=== PATIENT | male | born 1945 | race African-American/Black ===

== ENCOUNTER 2021-09-20 23:57 | Emergency (ER) | payer BC, MEDICARE ==
--- NOTE | 2021-09-21 00:25 | NUR ---
>Spoke with daughter Rosario Hinds . She says that her father has a medical history of stroke (not massive), dementia, alzheimers, bladder surgery last year for bladder not emptying. She said that when her father had twitching in the past, he had bladder infection. >Per EMT, PMD Dr. Franks wanted the patient to be evaluated here in [facility].
--- NOTE | 2021-09-21 00:30 | NUR ---
report given to ASHLEY Oropeza.
--- NOTE | 2021-09-21 00:35 | NUR ---
ASSUME CARE, PT ON MONITOR, SB PER CM. OBTAIN 12 LEAD EKG AND 18 MAP INSERTED INTO RIGHT POSTERIOR ARM,MCNAIR CATH VERIFIED BY DAUGHTER THAT IT WAS INSERTED ON 09/20/21 AT [facility]OUS [facility] IN THE AFTERNOON.MCNAIR CATH PATIENT AND INTACT DRAINING CLEAR YELLOW URINE, KEPT BELOW BLADDER.PATIENT NOT IS CONFUSED TO TIME AND PLACE BUT REMAIN COOPERATIVE AND PLEASANT.
--- NOTE | 2021-09-21 00:40 | NUR ---
Condom cath noted on patient and not indewling andrew cath, patient incont of B/B, jerking movement persist. Maintain safe environment.
[2021-09-21 01:24] LABS: *BILIRUBIN,URIN NEGATIVE (NEGATIVE); *CLARITY,URINE CLEAR (CLEAR); *COLOR,URINE YELLOW (YELLOW); *KETONES,URINE NEGATIVE (NEGATIVE); *UROBILINOGEN,URINE 0.2 E.U./dl (NORMAL); LEUKOCYTE ESTERASE ,URINE TRACE (NEGATIVE); NITRITE, URINE NEGATIVE (NEGATIVE); PH,URINE 8.5 (5.0-8.0); UGLUCOSE NEGATIVE (NEGATIVE)
[2021-09-21 01:37] LABS: *BLOOD, URINE TRACE (NEGATIVE)
[2021-09-21 01:38] LABS: HEMATOCRIT 45.9 % (36.7-47.1); MEAN CORPUSCULAR HEMOGLOBIN 28.4 uug (23.8-33.4); MEAN CORPUSCULAR VOLUME 86.1 fL (73.0-96.2); PLATELET COUNT (AUTO) 316 K/uL (152-348)
[2021-09-21 01:49] LABS: BACTERIA,URINE NONE SEEN /HPF (NONE SEEN); SQUAMOUS EPITHELIAL CELL,UR NONE SEEN /HPF (NONE SEEN); WBC,URINE 0-3 /HPF (0-3)
--- NOTE | 2021-09-21 02:00 | NUR ---
NO DISTRESS NOTED MONITORING CONTS.
[2021-09-21 02:08] LABS: ALANINE AMINOTRANSFERASE 22 U/L (16-63); ALKALINE PHOSPHATASE 41 U/L (50-136); ASPARTATE AMINOTRANSFERASE 21 U/L (15-37); BILIRUBIN,DIRECT 0.2 mg/dL (0.0-0.2); BILIRUBIN,TOTAL 0.7 mg/dL (0.2-1.0); CARBON DIOXIDE 32 mmol/L (21-32); CHLORIDE 105 mmol/L (98-107); CREATININE 1.3 mg/dL (0.6-1.3); GLUCOSE 105 mg/dL (74-106); POTASSIUM 3.9 mmol/L (3.5-5.1); TOTAL PROTEIN, SERUM 7.4 g/dL (6.4-8.2); UREA NITROGEN, BLOOD 12 mg/dL (7-18)
[2021-09-21] MEDS ORDERED: IV NORMAL SALINE 500 ML IV ONE (03:30)
--- NOTE | 2021-09-21 04:00 | NUR ---
NS 500 ml bolus infusing wide open right fa map via pump.
--- NOTE | 2021-09-21 06:37 | NUR ---
PATIENT BEING DISCHARGE TO [facility].DAUGHTER CALLED AND NOTIFIED.
--- NOTE | 2021-09-21 06:57 | NUR ---
CHARGE NURSE CALLED AMBULANCE BLS TO TRANSPORT PATIENT BACK TO GROUP HOME: [facility] 0930 AM, QUINN CALLED AND MESSAGE LEFT ON ANSWERING MACHINE.
--- NOTE | 2021-09-21 07:19 | NUR ---
REPORT GIVEN TO INCOMING RN ASSUMING CARE
--- NOTE | 2021-09-21 07:30 | NUR ---
Received pt. AAOx1. restless confused attempting to GOB unsupervised. Pt. educated on pt. safety and risk for falling. Not following commands as per report pt. 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
--- NOTE | 2021-09-21 08:00 | NUR ---
HR. 71 sbp of 151/131. patient restless saturation of 100%.
--- NOTE | 2021-09-21 08:39 | NUR ---
PT. assited to bathroom refused breakfast.
--- NOTE | 2021-09-21 09:06 | NUR ---
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 and take him back [facility]ael Ayala assited living. daughter aware and informed when she returned call this morning. pt ate breakfast. P. AAOX1. sitting at bedside.
== END 2021-09-21 09:11 ==
LOC: ER 09-21 00:42
DX: R25.3 Fasciculation (principal); R41.0 Disorientation, unspecified; Z86.73 Personal history of transient ischemic attack (TIA), and cerebral infarction without residual deficits; I10 Essential (primary) hypertension; I44.0 Atrioventricular block, first degree; R00.1 Bradycardia, unspecified; R74.8 Abnormal levels of other serum enzymes; Z87.440 Personal history of urinary (tract) infections; F03.90 Unspecified dementia, unspecified severity, without behavioral disturbance, psychotic disturbance, mood disturbance, and anxiety; Z20.822 Contact with and (suspected) exposure to COVID-19
CPT/HCPCS: 99285; 70450; 71045; 87426; 80076; 80048; 81001; 82140; 82550; 83735; 85025; 87040 ×2; 87086; 84484; 36415; 93005; 83605; J7040

== ENCOUNTER 2023-05-26 11:57 | Inpatient (IN) | payer BC, MEDICARE ==
[~2023-05-26] VITALS: Ht 172.7 cm; Wt 66.7 kg
[2023-05-26] MEDS ORDERED: MEMA10TA56 PO (12:21)
[2023-05-26] MEDS ORDERED: AMLO2.5T4 PO (12:21)
[2023-05-26] MEDS ORDERED: DONE10TA44 PO (12:21)
[2023-05-26] MEDS ORDERED: MEDI7.7O PO (12:21)
[2023-05-26] MEDS ORDERED: LOPE2CAP40 PO (12:38)
[2023-05-26] MEDS ORDERED: MAGN400O6 PO (12:38)
[2023-05-26] MEDS ORDERED: MAG30ORA PO (12:38)
[2023-05-26] MEDS ORDERED: ACET325T53 PO (12:38)
[2023-05-26 13:34] LABS: BASOPHILS % (AUTO) 0.8 % (0.0-2.0); EOSINOPHILS # (AUTO) 0.1 K/uL (0.0-0.7); EOSINOPHILS % (AUTO) 1.3 % (0.0-7.0); HEMATOCRIT 40.2 % (36.7-47.1); HEMOGLOBIN 13.3 g/dL (12.5-16.3); LYMPHOCYTES # (AUTO) 1.8 K/uL (0.8-4.8); LYMPHOCYTES % (AUTO) 35.7 % (20.5-51.5); MEAN CORPUSCULAR HEMOGLOBIN 28.2 uug (23.8-33.4); MEAN CORPUSCULAR HGB CONC 33 g/dL (32.5-36.3); MEAN CORPUSCULAR VOLUME 84.9 fL (73.0-96.2); MONOCYTES # (AUTO) 0.5 K/uL (0.1-1.30); MONOCYTES % (AUTO) 9.9 % (0.0-11.0); NEUTROPHILS # (AUTO) 2.6 K/uL (1.8-8.9); NEUTROPHILS % (AUTO) 52.3 % (38.5-71.5); PLATELET COUNT (AUTO) 285 K/uL (152-348); RED BLOOD CELL COUNT(AUTO) 4.73 MIL/uL (4.06-5.63)
[2023-05-26 13:41] LABS: CARBON DIOXIDE 29 mmol/L (21-32); CHLORIDE 106 mmol/L (98-107); CREATININE 1.2 mg/dL (0.6-1.3); GLUCOSE 90 mg/dL (74-106); POTASSIUM 4.4 mmol/L (3.5-5.1); SODIUM SERUM 144 mmol/L (136-145); UREA NITROGEN, BLOOD 16 mg/dL (7-18)
[2023-05-26 13:47] LABS: DIFFERENTIAL COMMENT 1
[2023-05-26] MEDS ORDERED: ACETAMINOPHEN 325 MG TABLET PO PRN (19:15)
[2023-05-26] MEDS ORDERED: HOME MED MISCELLANEOUS XX SCH (19:15)
[2023-05-26] MEDS ORDERED: REMEDY ESSENTIAL ZINC PASTE 113 GM TP PRN (19:15)
[2023-05-26] MEDS ORDERED: HYDROCODONE/APAP 10-325 MG TABLET PO PRN (19:15)
[2023-05-26] MEDS ORDERED: ACETAMINOPHEN 325 MG TABLET-SA PATIENTS-PAIN ONLY PO PRN (19:15)
[2023-05-26] MEDS ORDERED: MAGNESIUM HYDROXIDE 30 ML LIQUID UDC PO PRN ×2 (19:15)
[2023-05-26] MEDS ORDERED: ONDANSETRON 4 MG/2 ML VIAL IV PRN (19:15)
[2023-05-26] MEDS ORDERED: MAG HYDROX/AL HYDROX/SIMETH 30 ML LIQUID UDC PO PRN (19:15)
[2023-05-26 20:51] LABS: *BILIRUBIN,URIN NEGATIVE (NEGATIVE); *BLOOD, URINE 2+ (NEGATIVE); *CLARITY,URINE CLEAR (CLEAR); *COLOR,URINE YELLOW (YELLOW); *KETONES,URINE NEGATIVE (NEGATIVE); *PROTEIN,URINE 1+ (NEGATIVE); LEUKOCYTE ESTERASE ,URINE NEGATIVE (NEGATIVE); NITRITE, URINE NEGATIVE (NEGATIVE); PH,URINE 6.5 (5.0-8.0); UGLUCOSE NEGATIVE (NEGATIVE)
[2023-05-26 21:05] VITALS: BP 137/75; TEMP 97.8
[2023-05-26 21:18] LABS: BACTERIA,URINE FEW /HPF (NONE SEEN); RBC,URINE 80-100 /HPF (0-3); SQUAMOUS EPITHELIAL CELL,UR FEW /HPF (NONE SEEN); WBC,URINE 0-3 /HPF (0-3)
[2023-05-26] MEDS: IV D5 1/2 NS 1000 ML 1,000 ML IV PRN (21:25)
[2023-05-27 04:44] VITALS: BP 145/78; TEMP 97.8; O2SAT 97
[2023-05-27] MEDS: PANTOPRAZOLE SODIUM 40 MG TABLET.DR PO SCH (06:14)
[2023-05-27 06:31] LABS: BASOPHILS % (AUTO) 0.5 % (0.0-2.0); EOSINOPHILS # (AUTO) 0.1 K/uL (0.0-0.7); EOSINOPHILS % (AUTO) 2.2 % (0.0-7.0); HEMATOCRIT 41.6 % (36.7-47.1); HEMOGLOBIN 13.7 g/dL (12.5-16.3); LYMPHOCYTES # (AUTO) 1.8 K/uL (0.8-4.8); LYMPHOCYTES % (AUTO) 45.5 % (20.5-51.5); MEAN CORPUSCULAR HEMOGLOBIN 27.9 uug (23.8-33.4); MEAN CORPUSCULAR HGB CONC 33 g/dL (32.5-36.3); MONOCYTES # (AUTO) 0.5 K/uL (0.1-1.30); MONOCYTES % (AUTO) 12.7 % (0.0-11.0); NEUTROPHILS # (AUTO) 1.6 K/uL (1.8-8.9); NEUTROPHILS % (AUTO) 39.1 % (38.5-71.5); PLATELET COUNT (AUTO) 280 K/uL (152-348); RED BLOOD CELL COUNT(AUTO) 4.89 MIL/uL (4.06-5.63); RED CELL DISTRIBUTION WIDTH 14.1 % (12.1-16.2)
[2023-05-27 06:33] LABS: DIFFERENTIAL COMMENT 1
[2023-05-27 06:51] LABS: CARBON DIOXIDE 29 mmol/L (21-32); CHLORIDE 105 mmol/L (98-107); CHOLESTEROL 204 mg/dL (<200); CREATININE 1.1 mg/dL (0.6-1.3); GLUCOSE 88 mg/dL (74-106); HDL CHOLESTEROL 84 mg/dL (40-60); MAGNESIUM 1.8 mg/dL (1.8-2.4); PHOSPHOROUS 2.6 mg/dL (2.5-4.9); POTASSIUM 3.7 mmol/L (3.5-5.1); SODIUM SERUM 142 mmol/L (136-145); TRIGLYCERIDES 65 MG/DL (30-150); UREA NITROGEN, BLOOD 13 mg/dL (7-18)
[2023-05-27] MEDS: DONEPEZIL 10 MG TABLET PO SCH (08:49)
[2023-05-27] MEDS: AMLODIPINE 2.5 MG TABLET PO SCH (08:49)
[2023-05-27] MEDS: MEMANTINE HCL 10 MG TABLET PO SCH (08:49)
[2023-05-27 11:13] VITALS: BP 131/82; TEMP 98.2; O2SAT 90
[2023-05-27] MEDS: ENSURE WITH FIBER 237 ML LIQUID (CHOCOLATE) PO SCH (13:45)
[2023-05-27 14:57] VITALS: BP 109/54; TEMP 98.5; O2SAT 90
[2023-05-27 20:00] VITALS: BP 152/59; TEMP 97.8; O2SAT 100
[2023-05-28] MEDS: TEMAZEPAM 15 MG CAPSULE PO PRN (01:03)
[2023-05-28 04:00] VITALS: TEMP 98
[2023-05-28 06:00] VITALS: TEMP 98.2
[2023-05-28 12:00] VITALS: BP 101/76; TEMP 97; O2SAT 99
[2023-05-28 13:14] LABS: AMMONIA < 10 umol/L (11-32)
[2023-05-28 13:16] LABS: ALANINE AMINOTRANSFERASE 25 U/L (16-63); ALBUMIN 3.5 g/dL (3.4-5.0); ALKALINE PHOSPHATASE 54 U/L (50-136); ASPARTATE AMINOTRANSFERASE 25 U/L (15-37); BILIRUBIN,DIRECT 0.1 mg/dL (0.0-0.2); BILIRUBIN,TOTAL 0.7 mg/dL (0.2-1.0); TOTAL PROTEIN, SERUM 7.2 g/dL (6.4-8.2)
[2023-05-28 14:06] LABS: THYROID STIMULATING HORMONE 1.402 mIU/mL (0.358-3.740)
[2023-05-28] MEDS: ASPIRIN 300 MG RECTAL SUPP RC SCH (15:00)
[2023-05-28 16:44] VITALS: BP 118/55; TEMP 97.5; O2SAT 98
[2023-05-28 20:00] VITALS: BP 116/57; TEMP 97.9; O2SAT 94
[2023-05-29 06:00] VITALS: BP 109/60; TEMP 97.7; O2SAT 95
[2023-05-29 11:54] VITALS: BP 131/65; TEMP 97.3; O2SAT 96
[2023-05-29] MEDS: ENSURE WITH FIBER 237 ML LIQUID (CHOCOLATE) PO SCH (16:14)
[2023-05-29 20:00] VITALS: BP 138/79; TEMP 98.3; O2SAT 95
[2023-05-30 05:30] VITALS: BP 160/83; TEMP 97; O2SAT 95
[2023-05-30 06:17] LABS: BASOPHILS % (AUTO) 0.6 % (0.0-2.0); EOSINOPHILS # (AUTO) 0.1 K/uL (0.0-0.7); EOSINOPHILS % (AUTO) 2.4 % (0.0-7.0); HEMATOCRIT 40.9 % (36.7-47.1); HEMOGLOBIN 13.7 g/dL (12.5-16.3); LYMPHOCYTES # (AUTO) 1.3 K/uL (0.8-4.8); LYMPHOCYTES % (AUTO) 28.3 % (20.5-51.5); MEAN CORPUSCULAR HEMOGLOBIN 28.4 uug (23.8-33.4); MEAN CORPUSCULAR HGB CONC 34 g/dL (32.5-36.3); MEAN CORPUSCULAR VOLUME 84.5 fL (73.0-96.2); MONOCYTES # (AUTO) 0.6 K/uL (0.1-1.30); MONOCYTES % (AUTO) 11.9 % (0.0-11.0); NEUTROPHILS # (AUTO) 2.6 K/uL (1.8-8.9); NEUTROPHILS % (AUTO) 56.8 % (38.5-71.5); PLATELET COUNT (AUTO) 247 K/uL (152-348); RED BLOOD CELL COUNT(AUTO) 4.84 MIL/uL (4.06-5.63); RED CELL DISTRIBUTION WIDTH 13.8 % (12.1-16.2); WHITE BLOOD COUNT (AUTO) 4.6 K/uL (3.6-10.2)
[2023-05-30 06:18] LABS: DIFFERENTIAL COMMENT 1
[2023-05-30 06:31] LABS: CALCIUM 8.7 mg/dL (8.5-10.1); CARBON DIOXIDE 29 mmol/L (21-32); CHLORIDE 107 mmol/L (98-107); GLUCOSE 107 mg/dL (74-106); POTASSIUM 3.8 mmol/L (3.5-5.1); SODIUM SERUM 141 mmol/L (136-145); UREA NITROGEN, BLOOD 12 mg/dL (7-18)
[2023-05-30 12:00] VITALS: BP 116/57; TEMP 98.7
[2023-05-30 16:02] VITALS: BP 123/69; TEMP 97.9
[2023-05-30 19:20] VITALS: BP 118/52; TEMP 98.3; O2SAT 96
[2023-05-31 05:33] VITALS: BP 147/69; TEMP 98.1; O2SAT 97
[2023-05-31 07:45] VITALS: BP 123/71; TEMP 98.2; O2SAT 98
[2023-05-31] MEDS: ASPIRIN EC 81 MG TABLET.DR PO SCH (08:31)
[2023-05-31] MEDS: ENSURE WITH FIBER 237 ML LIQUID (CHOCOLATE) PO SCH (13:30)
[2023-05-31 20:23] VITALS: TEMP 99.1
[2023-06-01 05:21] VITALS: TEMP 97.9
[2023-06-01 08:52] VITALS: BP 109/70; TEMP 97.6; O2SAT 96
[2023-06-01] MEDS ORDERED: ASPI-618 PO (11:29)
[2023-06-01 11:47] VITALS: BP 114/46; TEMP 98.4; O2SAT 98
[2023-06-01 15:54] VITALS: BP 126/53; TEMP 97.8; O2SAT 98
[2023-06-01 19:30] VITALS: BP 111/53; TEMP 97.7; O2SAT 97
[2023-06-02 06:08] VITALS: BP 133/73; TEMP 97.7; O2SAT 96
[2023-06-02 08:13] LABS: EOSINOPHILS # (AUTO) 0.1 K/uL (0.0-0.7); EOSINOPHILS % (AUTO) 1.9 % (0.0-7.0); HEMATOCRIT 41.4 % (36.7-47.1); HEMOGLOBIN 13.9 g/dL (12.5-16.3); LYMPHOCYTES # (AUTO) 1.4 K/uL (0.8-4.8); LYMPHOCYTES % (AUTO) 30.6 % (20.5-51.5); MEAN CORPUSCULAR HEMOGLOBIN 28.5 uug (23.8-33.4); MEAN CORPUSCULAR HGB CONC 34 g/dL (32.5-36.3); MEAN CORPUSCULAR VOLUME 84.7 fL (73.0-96.2); MONOCYTES # (AUTO) 0.5 K/uL (0.1-1.30); MONOCYTES % (AUTO) 10.2 % (0.0-11.0); NEUTROPHILS # (AUTO) 2.6 K/uL (1.8-8.9); NEUTROPHILS % (AUTO) 56.3 % (38.5-71.5); PLATELET COUNT (AUTO) 271 K/uL (152-348); RED BLOOD CELL COUNT(AUTO) 4.89 MIL/uL (4.06-5.63); RED CELL DISTRIBUTION WIDTH 13.7 % (12.1-16.2); WHITE BLOOD COUNT (AUTO) 4.6 K/uL (3.6-10.2)
[2023-06-02 08:26] LABS: CALCIUM 8.9 mg/dL (8.5-10.1); CARBON DIOXIDE 33 mmol/L (21-32); CHLORIDE 107 mmol/L (98-107); CREATININE 1.1 mg/dL (0.6-1.3); GLUCOSE 103 mg/dL (74-106); MAGNESIUM 1.8 mg/dL (1.8-2.4); PHOSPHOROUS 2.4 mg/dL (2.5-4.9); POTASSIUM 3.9 mmol/L (3.5-5.1); SODIUM SERUM 144 mmol/L (136-145); UREA NITROGEN, BLOOD 12 mg/dL (7-18)
[2023-06-02 09:08] LABS: DIFFERENTIAL COMMENT 1
[2023-06-02 11:58] VITALS: BP 103/54; TEMP 97.7; O2SAT 96
[2023-06-02 16:11] VITALS: BP 120/52; TEMP 98.1
[2023-06-02 20:00] VITALS: BP 127/67; TEMP 97.5; O2SAT 99
[2023-06-03 05:28] VITALS: BP 121/59; TEMP 97.4; O2SAT 99
[2023-06-03 08:40] VITALS: BP 121/59
== END 2023-06-03 10:30 | DRG 640 ==
LOC: ER 11:57 → MEDSURG3 20:31
PROVIDERS: ADMIT Nurse Practitioner Acute Care; ATTEND Nurse Practitioner Acute Care
DX: R62.7 Adult failure to thrive (principal); G93.41 Metabolic encephalopathy; D68.59 Other primary thrombophilia; F02.80 Dementia in other diseases classified elsewhere, unspecified severity, without behavioral disturbance, psychotic disturbance, mood disturbance, and anxiety; G30.9 Alzheimer's disease, unspecified; G25.3 Myoclonus; I10 Essential (primary) hypertension; R13.10 Dysphagia, unspecified; R53.1 Weakness; Z86.73 Personal history of transient ischemic attack (TIA), and cerebral infarction without residual deficits
CPT/HCPCS: 36415; 70450; 70551; 71045; 83735; 84100; 84443; 84484; 85025; 93880; 95819; A4663; A6209; C1758; G0378; J7070